=== PATIENT | female | born 1990 | race African-American/Black ===

== ENCOUNTER 2018-08-01 10:58 | Emergency (ER) | payer BC, MEDICAID ==
[~2018-08-01] VITALS: Ht 152.4 cm; Wt 53.1 kg
[2018-08-01] MEDS ORDERED: IBUPROFEN 600 MG TABLET PO ONE (12:15)
[2018-08-01] MEDS ORDERED: IBUPROFEN 600 MG TABLET ONE (12:18)
--- NOTE | 2018-08-01 12:27 | NUR ---
Patient discharged to home in stable conditon. Written and verbal after care instructions given. Patient verbalizes understanding of instructions.pt walks in steady gait. no sign of distress at his time .prt with mother
== END 2018-08-01 12:29 | disposition home or self-care (01) ==
LOC: ER 10:58
DX: J11.1 Influenza due to unidentified influenza virus with other respiratory manifestations (principal); R11.10 Vomiting, unspecified; R19.7 Diarrhea, unspecified
CPT/HCPCS: A4663

== ENCOUNTER 2018-11-19 21:32 | Emergency (ER) | payer SELFPAY ==
[~2018-11-19] VITALS: Ht 149.9 cm; Wt 55.8 kg
--- NOTE | 2018-11-19 21:46 | NUR ---
Dr. Galeana at bedside for MSE.
[2018-11-19 21:51] LABS: *BILIRUBIN,URIN NEGATIVE (NEGATIVE); *COLOR,URINE YELLOW (YELLOW); *KETONES,URINE NEGATIVE (NEGATIVE); LEUKOCYTE ESTERASE ,URINE TRACE (NEGATIVE); NITRITE, URINE NEGATIVE (NEGATIVE); PH,URINE 6.5 (5.0-8.0); UGLUCOSE NEGATIVE (NEGATIVE)
[2018-11-19 21:53] LABS: *URINE HCG, QUAL NEGATIVE (NEGATIVE)
[2018-11-19] MEDS ORDERED: IBUPROFEN 600 MG TABLET ONE (21:54)
[2018-11-19 21:59] LABS: *BLOOD, URINE TRACE (NEGATIVE); *CLARITY,URINE SLIGHTLY CLOUDY (CLEAR)
[2018-11-19] MEDS ORDERED: IBUPROFEN 600 MG TABLET PO ONE (22:00)
[2018-11-19 22:01] LABS: BACTERIA,URINE MODERATE /HPF (NONE SEEN); MUCUS,URINE MANY /LPF (0-FEW); SQUAMOUS EPITHELIAL CELL,UR MODERATE /HPF (NONE SEEN)
[2018-11-19] MEDS ORDERED: KETOROLAC TROMETHAMINE 60 MG INJ IM ONE ×2 (22:15→22:19)
[2018-11-19] MEDS ORDERED: SULFAMETH/TRIMETH 800/160 MG TABLET PO ONE (22:15)
[2018-11-19] MEDS ORDERED: SULFAMETH/TRIMETH 800/160 MG TABLET ONE (22:19)
--- NOTE | 2018-11-19 22:25 | NUR ---
Patient discharged to home in stable conditon. Written and verbal after care instructions given. Patient verbalizes understanding of instructions. Pt ambulated out of ER with steady gait, no acute signs of distress, VSS, all belongings taken.
[2018-11-19 22:26] VITALS: BP 116/75
== END 2018-11-19 22:27 | disposition home or self-care (01) ==
LOC: ER 21:32
DX: N39.0 Urinary tract infection, site not specified (principal); R51 Headache
CPT/HCPCS: 81000; 81001; 84703; 87086; 96372; 99283; J1885; A4663